=== PATIENT | male | born 1960 | race Caucasian/White ===

== ENCOUNTER 2024-04-18 08:49 | Emergency (ER) | payer BC, MEDICARE | END 2024-04-18 09:39 | disposition home or self-care (01) | LOC: CSHERS 08:49 | DX: E11.621 Type 2 diabetes mellitus with foot ulcer (principal); L98.499 Non-pressure chronic ulcer of skin of other sites with unspecified severity; I10 Essential (primary) hypertension | CPT/HCPCS: 36416; 99283 ==